=== PATIENT | female | born 1985 | race Asian ===

== ENCOUNTER 2017-09-29 12:38 | Emergency (ER) | payer OTHER ==
[2017-09-29 12:53] VITALS: BP 110/79
--- NOTE | 2017-09-29 13:46 | ED Physician Documentation ---
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 She says she did get blood drop from her thumb. She does not know full history of the source pateint. Did report it to horticulture supervisor at [facility]. Referred to ER. Occurred just FLORAL ASSOCIATE.) Where injury occurred: Work Timing - onset: Today Timing - details: Abrupt onset Worsened by: No: Palpating Associated symptoms: No: Weakness, Numbness Similar symptoms before: Has not had sx before Recently seen: Not recently seen Review of Systems Constitutional: reports: Other (has had Hep B vaccines int he past.). denies: Fever Nose: denies: Rhinorrhea / runny nose, Congestion Throat: denies: Sore throat Respiratory: denies: Cough : denies: Dysuria, Discharge Skin: denies: Rash, Lesions PD PAST MEDICAL HISTORY - Past Medical History Past Medical History: No Cardiovascular: None Respiratory: None Endocrine/Autoimmune: None GI: None FITNESS ASSISTANT: None : None HEENT: None Psych: None Musculoskeletal: None Derm: None - Past Surgical History Past Surgical History: Yes /FITNESS ASSISTANT: section - Present Medications Home Medications: Ambulatory Orders Medication Instructions Recorded Confirmed lamiVUDine/ZIDOVUDINE [Combivir] 1 each PO BID #10 tablet 09/29/17 - Allergies Allergies/Adverse Reactions: Allergies Allergy/AdvReac Type Severity Reaction Status Date / Time No Known Drug Allergies Allergy Verified 09/29/17 12:53 - Social History Does the pt smoke?: No Smoking Status: Never smoker Does the pt drink ETOH?: No Does the pt have substance abuse?: No - Immunizations Immunizations are current?: Yes - POLST Patient has POLST: No PD ED PE NORMAL - Vitals Vital signs reviewed: Yes - General General: Alert and oriented X 3, No acute distress, Well developed/nourished - Derm Derm: Normal color, Warm and dry - Extremities Extremities: Other (left thumb tip with smll puncture wound. No FB nor bleeding. ) - Neuro Neuro: No motor deficit, No sensory deficit Results - Vitals Vitals: Vital Signs - 24 hr 09/29/17 12:45 Temperature 36.2 C L Heart Rate 86 Respiratory 15 Rate Blood Pressure 110/79 O2 Saturation 98 Oxygen O2 Source Room air - Labs Labs: Laboratory Tests 09/29/17 14:15 Serum HCG, Qual NEGATIVE PD MEDICAL DECISION MAKING - ED course Complexity details: reviewed results (body fluid exposure tests drawn. The expsoure order set only had HIV and preg test, so I added Hep panel), considered differential ([facility] would have protocol for body fluid exposure. Still Operator Brandy would be checking for blood testing of source patient, so should be able to assess HIV/HCV risk in the next couple days. Very low risk exposure, and patient wants to have HIV prophylaxis pending the source patient test results. ), d/w patient - Sepsis Event Vital Signs: Vital Signs - 24 hr 09/29/17 12:45 Temperature 36.2 C L Heart Rate 86 Respiratory 15 Rate Blood Pressure 110/79 O2 Saturation 98 Oxygen O2 Source Room air Departure - Departure Disposition: 01 Home, Self Care Clinical Impression: Needlestick injury accident with exposure to body fluid Condition: Stable Record reviewed to determine appropriate education?: Yes Instructions: ED Body Fluid Exp HC Worker Prescriptions: lamiVUDine/ZIDOVUDINE [Combivir] 1 each PO BID #10 tablet Comments: Follow-up with the horticulture supervisor/administration at [employer]. They should be following a protocol to test the source patient for blood borne diseases. Presumably this will result in the next few days. Take Combivir antiviral for HIV prophylaxis until you find out the results of the testing on the source patient. Otherwise watch for signs of infection at the injury site. Tylenol if needed for pains. Discharge Date/Time: 09/29/17 14:47
[2017-09-29] MEDS ORDERED: ONDANSETRON ODT 4 MG TABLET TL STA (13:57)
[2017-09-29] MEDS ORDERED: lamiVUDine/ZIDOVUDINE 150 MG/300 MG TABLET PO STA (13:57)
[2017-09-29 14:42] LABS: HCG,QUALITATIVE BLOOD NEGATIVE
[2017-09-30 12:48] LABS: HEPATITIS A IGM NON-REACTIVE (NON-REACTIVE); HEPATITIS B CORE ANTIBODY IGM NON-REACTIVE (NON-REACTIVE); HEPATITIS B SURFACE ANTIGEN NON-REACTIVE (NON-REACTIVE); HEPATITIS C ANTIBODY NON-REACTIVE (NON-REACTIVE)
[2017-09-30 16:47] LABS: HIV AG/AB 4TH GEN NON-REACTIVE (NON-REACTIVE)
== END 2017-09-29 14:47 | disposition home or self-care (01) ==
LOC: ED 12:38
DX: S61.032A Puncture wound without foreign body of left thumb without damage to nail, initial encounter (principal); W46.1XXA Contact with contaminated hypodermic needle, initial encounter; Y99.0 Civilian activity done for income or pay; Z77.21 Contact with and (suspected) exposure to potentially hazardous body fluids
CPT/HCPCS: 36415; 80074; 84703; 87389; 99283; A9270; Q0162; 1040M

== ENCOUNTER 2018-04-23 05:52 | Day surgery (SDC) | payer OTHER ==
[2018-04-23] MEDS ORDERED: ceFAZolin 2 GM/50 ML 2 GM/50 ML BAG IV ONE (06:27)
[2018-04-23 06:49] LABS: HCG UR QUAL NEGATIVE
[2018-04-23] MEDS ORDERED: LACTATED RINGERS 1,000 ML IV ONE ×2 (07:04→09:22)
--- NOTE | 2018-04-23 07:10 | ANESTHESIA ---
Pre-Anesthesia VS, & Labs - Diagnosis Right foot hallux valgus - Procedure right foot bunionectomy Vital Signs: Temp Pulse Resp BP Pulse Ox 36.2 C L 57 L 16 108/75 100 04/23/18 06:41 04/23/18 06:41 04/23/18 06:41 04/23/18 06:41 04/23/18 06:41 Height 5 ft 1 in Weight (kg) 62.5 kg Body Mass Index 25.4 - NPO >8 hours Last Fluid Intake: water at 540 - Is Patient ?: No Home Medications and Allergies Home Medications: Ambulatory Orders Ascorbic Acid [Vitamin C] 500 mg PO 04/14/18 Pnv No.122/Iron/Folic Acid [ Multi Tablet] 1 each PO 04/14/18 Ascorbic Acid [Vitamin C] 500 mg PO 04/14/18 Pnv No.122/Iron/Folic Acid [ Multi Tablet] 1 each PO 04/14/18 Allergies/Adverse Reactions: Allergies Allergy/AdvReac Type Severity Reaction Status Date / Time No Known Drug Allergies Allergy Verified 04/14/18 09:34 Anes History & Medical History - Anesthetic History Family history of Anesthesia Complications: Denies Family history of Malignant Hyperthermia: Denies - Medical History Cardiovascular: reports: None Pulmonary: reports: None Gastrointestinal: reports: None Urinary: reports: None Neuro: reports: None Musculoskeletal: reports: Other Endocrine/Autoimmune: reports: None Blood Disorders: reports: None Skin: reports: None Smoking Status: Never smoker Psychosocial: reports: No issues indicated - Surgical History Gynecologic: section Exam General: Alert, Oriented x3, Cooperative, No acute distress Dental: WNL Mouth Openin Fingerbreadth Neck Mobility: Normal Mallampati classification: II Thyromental Distance: 4-6 cm Respiratory: Lungs clear, Normal breath sounds, No respiratory distress, No accessory muscle use Cardiovascular: Regular rate, Normal S1, Normal S2, No murmurs Mental/Cognitive Status: Alert/Oriented X3, Normal for patient Plan Anesthesia Type: General Consent for Procedure(s) Verified and Reviewed: Yes Code Status: Attempt Resuscitation ASA classification: 1-Healthy patient Is this case an emergency?: No
[2018-04-23] MEDS ORDERED: BUPIVACAINE 0.25% PF 10 ML VIAL ONE (07:12)
[2018-04-23] MEDS ORDERED: fentaNYL 100 MCG/2 ML VIAL IVP ONE (08:12)
[2018-04-23] MEDS ORDERED: PROPOFOL 200 MG/20 ML VIAL IVP ONE (08:12)
[2018-04-23] MEDS ORDERED: DEXAMETHASONE 4 MG/ML VIAL IVP ONE (08:12)
[2018-04-23] MEDS ORDERED: KETOROLAC 30 MG/ML VIAL IVP ONE (08:12)
[2018-04-23] MEDS ORDERED: HYDROmorphone 1 MG/ML CARPUJECT IVP ONE (08:12)
[2018-04-23] MEDS ORDERED: BUPIVACAINE 0.25% PF 30 ML VIAL SUBQ ONE ×3 (08:12→09:37)
[2018-04-23] MEDS ORDERED: MIDAZOLAM 2 MG/2 ML VIAL IVP ONE (08:12)
[2018-04-23] MEDS ORDERED: ONDANSETRON 4 MG/2 ML VIAL IVP ONE (08:12)
[2018-04-23] MEDS ORDERED: oxyCODONE 5 MG TABLET PO PRN (09:56)
[2018-04-23] MEDS ORDERED: ONDANSETRON 4 MG/2 ML VIAL IVP PRN (09:56)
--- NOTE | 2018-04-23 09:59 | OPERATIVE REPORT ---
Operative Report - General Procedure Date: 04/23/18 Planned Procedure: Right 1st Metatarsal Scarf Osteotomy, Modified Cheung Pre-Op Diagnosis: Right Hallux Valgus Procedure Performed: Right 1st Metatarsal Scarf Osteotomy, Modified Cheung Post Op Diagnosis: Same - Procedure Note Primary Surgeon: Berry Larson Estimated Blood Loss (mL): 5 Complications: None - Other Other Information/Narrative: Bunion Postoperative Plan: 0-2 weeks: No weight bearing leave dressing intact 2 week appt: Non weight bearing xrays, sutures out, bunion brace applied 2-4 weeks: No weight bearing, may remove bunion brace for showers, no soaking incision 4 week appt: Reassess, provide forefoot offloading hard soled shoe 4-8 weeks: WBAT in forefoot offloading shoe, continue to use bunion brace 8 week magan: Weight bearing xrays, may transition to normal shoe Indication For Surgery: 32-year-old female with bilateral hallux valgus right being worse than left. She has pain that limits her activities and did not respond to modification of shoewear and activities. The risks, benefits, and alternatives were discussed. Risks include pain, bleeding, infection, damage to nearby structures, numbness, recurrence of bunion, hallux varus, lack of symptom relief, implant complications, nonunion, need for further surgery, DVT, PE, stroke, and . Written consent was obtained. Procedure in Detail: The patient was met in the pre-operative hold area on the day of the procedure. The operative extremity was signed and questions were answered. The patient was brought to the operating room and a general anesthetic was administered. Supine position was used and bony prominences were padded. Standard prepping and draping was performed. A time out confirmed patient identification, laterality, procedure, allergies, antibiotics, and images. An Esmarch was used to exsanguinate the limb and the tourniquet was elevated to 250 mmHg. Total tourniquet time was 93 minutes. A 2 cm incision was made between the first and second metatarsal heads and blunt dissection was carried down. The neurovascular bundle was protected with a dull retractor. I identified the adductor tendon and the intermetacarpal ligament and sharply resected them from their attachments on the first ray. I took care to leave the flexor hallucis brevis attached to the lateral sesamoid. I incised the capsule between the sesamoid and the metacarpal head. I then pie crusted the lateral capsule between the metacarpal head and the proximal phalanx. A varus force was then applied to the toe and the toe freely moved in the varus. This wound was then packed with gauze A direct medial incision was made over the first metatarsal from the metatarsal phalangeal joint to just short of the tarsometatarsal joint. Blunt dissection was used to identify the dorsal cutaneous nerve and this was protected throughout the case. Full-thickness skin flaps were created. A full-thickness longitudinal capsular incision was made in the first MTP joint and the capsule was dissected off of the metatarsal head ensuring to preserve the plantar capsular attachments with the accompanying blood supply. A periosteal elevator was used to free the periosteum along the medial shaft. A silver osteotomy was then performed just off the cartilage surface ensuring to leave a medial shoulder. The distal dorsal transverse osteotomy was then made perpendicular to the first metatarsal shaft starting centrally and the metatarsal head. The total sawblade was left in place and the plantar proximal transverse osteotomy was made parallel to this ensuring to be within metaphyseal bone. The longitudinal osteotomy was then made parallel to the walking surface of the foot. A second proximal transverse osteotomy was made and a 4 mm chunk of bone was removed. A freer elevator was used to release the periosteum on the lateral surface to allow for the shift. I then shifted the plantar fragment laterally and pulled the dorsal fragment medially. This was then clamped in place and imaging confirmed excellent position. The plantar capsule was pulled on and the sesamoids reduced nicely. Satisfied with this position, countersunk 2.0 millimeter screws were placed proximally and distally confirming excellent purchase. The clamp was then removed and the fixation was stable. The medial shelf of bone was then excised with a sagittal saw. The wound was irrigated copiously. The medial shelf fragment was very small and was left out of the wound. Images were again taken. I then reassessed the toe and found that there was good spread between the first and second toe and determined that an Esvin osteotomy was not necessary. I then excised the excess medial capsule and performed a vest over pants plication and derotational capsular closure using 2-0 fiberwire, burying the knots between layers. This was backed up with multiple 0 Vicryl sutures. The periosteal layer was then closed with 0 Vicryl. The skin was closed with 2-0 Vicryl in the subdermis and 3-0 nylon in the skin. 10 cc of quarter percent Marcaine without epinephrine was placed deep to the incision. A sterile bunion dressing was applied. The patient was awakened and transferred to the recovery room.
[2018-04-23] MEDS ORDERED: oxyCODONE 5 MG TABLET ONE (11:06)
[2018-04-23] MEDS ORDERED: ONDANSETRON ODT 4 MG TABLET ONE (11:06)
[2018-04-23 11:19] VITALS: BP 103/65
== END 2018-04-23 05:53 | disposition home or self-care (01) ==
LOC: SDS 05:52
PROVIDERS: ATTEND Orthopaedic Surgery
PROC: 0QSN04Z Reposition Right Metatarsal with Internal Fixation Device, Open Approach (ICD-10-PCS; principal; 2018-04-23 07:30)
DX: M20.11 Hallux valgus (acquired), right foot (principal); M21.611 Bunion of right foot
CPT/HCPCS: 28296; 81025; A9270; C1713; J0690; J1170; J7120; Q0162

== ENCOUNTER 2018-07-02 20:21 | Emergency (ER) | payer OTHER ==
--- NOTE | 2018-07-02 21:15 | ED Physician Documentation ---
PD HPI FEMALE - Stated complaint Stated Complaint: ABD PX/4 WKS - Chief complaint Chief Complaint: Abd Pain - History obtained from History obtained from: Patient, Family - History of Present Illness Timing - onset: How many days ago (4) Timing - duration: Days (4) Timing - details: Gradual onset, Still present Associated symptoms: Pelvic pain. No: Vaginal bleeding, Vaginal discharge, Dysuria, Urinary frequency Contributing factors: OB-HANDER IN History: G (2), P (1) Similar symptoms before: Has not had sx before Recently seen: Clinic - Additional information Additional information: 33-year-old female 2 para 1 had a last normal menstrual period 05/31/2018 and she has had a positive test on 05/27/2018. She is working with hazardous materials at work and was concerned that she might be and took a test. She has had a confirmation done at the [facility]. She is experiencing some lower pelvic cramping with radiation to her back on both sides. She denies any bleeding or spotting. Review of Systems Constitutional: denies: Fever, Chills, Myalgias Eyes: denies: Decreased vision Ears: denies: Ear pain Nose: denies: Rhinorrhea / runny nose, Congestion Throat: denies: Sore throat Cardiac: denies: Chest pain / pressure, Palpitations Respiratory: denies: Dyspnea, Cough GI: reports: Abdominal Pain, Nausea. denies: Vomiting, Constipation, Diarrhea : denies: Dysuria, Frequency Skin: denies: Rash Musculoskeletal: denies: Neck pain, Back pain, Extremity pain Neurologic: denies: Generalized weakness, Focal weakness, Numbness PD PAST MEDICAL HISTORY - Past Medical History Past Medical History: No Cardiovascular: None Respiratory: None Neuro: None Endocrine/Autoimmune: None GI: None HANDER IN: None : None HEENT: None Psych: None Musculoskeletal: Other Derm: None - Past Surgical History Past Surgical History: Yes /HANDER IN: section - Present Medications Home Medications: Ambulatory Orders Medication Instructions Recorded Confirmed Ascorbic Acid [Vitamin C] 500 mg PO 04/14/18 Pnv No.122/Iron/Folic Acid 1 each PO 04/14/18 [ Multi Tablet] - Allergies Allergies/Adverse Reactions: Allergies Allergy/AdvReac Type Severity Reaction Status Date / Time No Known Drug Allergies Allergy Verified 07/02/18 20:29 - Social History Does the pt smoke?: No Smoking Status: Never smoker Does the pt drink ETOH?: No Does the pt have substance abuse?: No - Immunizations Immunizations are current?: Yes - POLST Patient has POLST: No PD ED PE NORMAL - Vitals Vital signs reviewed: Yes (normal) - General General: Alert and oriented X 3, No acute distress, Well developed/nourished - HEENT HEENT: Atraumatic, PERRL, EOMI - Neck Neck: Supple, no meningeal sign - Cardiac Cardiac: RRR, No murmur - Respiratory Respiratory: No respiratory distress, Clear bilaterally - Abdomen Abdomen: Soft, Other (mild suprapubic tenderness bilaterally ) - Back Back: No CVA TTP, No spinal TTP - Derm Derm: Normal color, Warm and dry, No rash - Extremities Extremities: No deformity, Normal ROM s pain, No edema - Neuro Neuro: Alert and oriented X 3, barrel brander 2-12 intact, No motor deficit, No sensory deficit, Normal speech Eye Opening: Spontaneous Motor: Obeys Commands Verbal: Oriented GCS Score: 15 - Psych Psych: Normal mood, Normal affect Results - Vitals Vitals: Vital Signs - 24 hr 07/02/18 20:24 Temperature 36.2 C L Heart Rate 77 Respiratory 18 Rate Blood Pressure 107/70 O2 Saturation 100 Oxygen O2 Source Room air - Labs Labs: Laboratory Tests 07/02/18 07/02/18 21:18 21:39 HCG, Quant 396.89 Urine Color YELLOW Urine Clarity CLEAR Urine pH 6.5 Ur Specific Aurora <=1.005 Urine Protein NEGATIVE Urine Glucose (UA) NEGATIVE Urine Ketones NEGATIVE Urine Occult Blood NEGATIVE Urine Nitrite NEGATIVE Urine Bilirubin NEGATIVE Urine Urobilinogen 0.2 (NORMAL) Ur Leukocyte Esterase NEGATIVE Ur Microscopic Review NOT INDICATED Urine Culture Comments NOT INDICATED Procedures - Bedside sono Bedside sono by EMP: With use of bedside ultrasound the pelvis is imaged and the uterus is well without obvious evidence of gestational sac. PD MEDICAL DECISION MAKING - ED course Complexity details: reviewed old records, reviewed results, re-evaluated patient, considered differential, d/w patient, d/w family ED course: 33-year-old female with early has a very low quantitative hCG and nothing visible on bedside ultrasound. She has some cramping-like pain she will need repeat hCG in 2 days. Departure - Departure Disposition: 01 Home, Self Care Clinical Impression: Early stage of Condition: Stable Instructions: ED Abdominal Pain Rule Out Ectopic Follow-Up: SIDDHARTH Galloway [Provider Group] Comments: Today your quantitative hCG was 396. This number should go up dramatically in the next 2 days and a repeat level is indicated. Follow-up with your primary care doctor.
[2018-07-02 21:27] LABS: BILIRUBIN,URINE NEGATIVE (NEGATIVE); CLARITY,URINE CLEAR (CLEAR); GLUCOSE, URINE (UA) NEGATIVE (NEGATIVE); KETONES,URINE (UA) NEGATIVE (NEGATIVE); LEUKOCYTE ESTERASE, URINE NEGATIVE (NEGATIVE); NITRITE,URINE NEGATIVE (NEGATIVE); OCCULT BLOOD,URINE NEGATIVE (NEGATIVE); PH,URINE 6.5 PH (5.0-7.5); PROTEIN,URINE NEGATIVE (NEGATIVE); UROBILINOGEN,URINE 0.2 (NORMAL) E.U./dL (NORMAL)
[2018-07-02 22:48] VITALS: BP 106/85
== END 2018-07-02 22:53 | disposition home or self-care (01) ==
LOC: ED 20:21
DX: O99.89 Other specified diseases and conditions complicating pregnancy, childbirth and the puerperium (principal); R10.2 Pelvic and perineal pain; M54.9 Dorsalgia, unspecified; Z3A.01 Less than 8 weeks gestation of pregnancy; Z77.29 Contact with and (suspected) exposure to other hazardous substances
CPT/HCPCS: 36415; 81001; 81003; 84702; 87086; 99282; 99283

== ENCOUNTER 2019-02-22 10:25 | Outpatient (CLI) | payer OTHER ==
[2019-02-22 10:44] VITALS: BP 106/68
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
== END 2019-02-22 13:00 | disposition home or self-care (01) ==
LOC: WFO 10:25 → FBP 10:28 → WFO 13:00
PROVIDERS: ATTEND Obstetrics & Gynecology
DX: Z04.1 Encounter for examination and observation following transport accident (principal); Z3A.38 38 weeks gestation of pregnancy
CPT/HCPCS: 99213

== ENCOUNTER 2019-02-28 13:13 | Outpatient (CLI) | payer OTHER ==
[2019-02-28 13:55] LABS: BASOPHILS % (AUTO) 0.3 %; EOSINOPHILS # (AUTO) 0.1 10^3/uL (0.0-0.7); EOSINOPHILS % (AUTO) 1.1 %; HGB - HEMOGLOBIN 11.1 g/dL (12.0-16.0); LYMPHOCYTES # (AUTO) 1.4 10^3/uL (1.5-3.5); LYMPHOCYTES % (AUTO) 21.5 %; MEAN CORPUSCULAR HEMOGLOBIN 32.5 pg (27.0-31.0); MEAN CORPUSCULAR HGB CONC 33.3 g/dL (32.0-36.0); MEAN CORPUSCULAR VOLUME 97.4 fL (81.0-99.0); MEAN PLATELET VOLUME 10.3 fL (7.9-10.8); MONOCYTES # (AUTO) 0.6 10^3/uL (0.0-1.0); MONOCYTES % (AUTO) 9.1 %; NEUTROPHILS # (AUTO) 4.5 10^3/uL (1.5-6.6); NEUTROPHILS % (AUTO) 67.1 %; PLT - PLATELET COUNT 155 10^3/uL (130-450); RED BLOOD COUNT 3.42 10^6/uL (4.20-5.40); RED CELL DISTRIBUTION WIDTH 12.8 % (12.0-15.0); WHITE BLOOD COUNT 6.6 x10^3/uL (4.8-10.8)
== END 2019-02-28 13:14 | disposition home or self-care (01) ==
LOC: LAB 13:13
PROVIDERS: ATTEND Obstetrics & Gynecology
DX: Z01.812 Encounter for preprocedural laboratory examination (principal); O34.211 Maternal care for low transverse scar from previous cesarean delivery; Z3A.00 Weeks of gestation of pregnancy not specified
CPT/HCPCS: 36415; 85025; 86850; 86900; 86901

== ENCOUNTER 2019-02-28 13:53 | Outpatient (CLI) | payer OTHER | END 2019-02-28 13:54 | disposition home or self-care (01) | LOC: WFO 13:53 | PROVIDERS: ATTEND Obstetrics & Gynecology | DX: O34.211 Maternal care for low transverse scar from previous cesarean delivery (principal); Z01.812 Encounter for preprocedural laboratory examination | CPT/HCPCS: 36415; 85025; 86850; 86900; 86901 ==

== ENCOUNTER 2019-03-01 06:02 | Inpatient (IN) | payer OTHER ==
[2019-03-01] MEDS ORDERED: LACTATED RINGERS 1,000 ML IV SCH ×2 (06:30→11:00)
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
[2019-03-01] MEDS ORDERED: CITRIC ACID/SODIUM CITRATE 15 ML UDC PO ONE (07:35)
[2019-03-01] MEDS ORDERED: ceFAZolin 2 GM in SODIUM CHLORIDE 0.9% 100ML 100 ML IV ONE (08:00)
[2019-03-01] MEDS ORDERED: LACTATED RINGERS 1,000 ML IV ONE ×2 (08:38→09:46)
[2019-03-01] MEDS ORDERED: METHYLERGONOVINE 0.2 MG/ML AMP ONE (09:14)
--- NOTE | 2019-03-01 09:18 | ANESTHESIA ---
Pre-Anesthesia VS, & Labs - Diagnosis Previous C section - Procedure Repeat C section Vital Signs: Temp Pulse Resp BP Pulse Ox 36.9 C 74 16 92/59 L 98 03/01/19 07:43 03/01/19 07:43 03/01/19 07:43 03/01/19 07:43 03/01/19 07:43 Height 5 ft 2 in Weight (kg) 73.028 kg Body Mass Index 23.9 - NPO >8 hours - Is Patient ?: Yes - Lab Results Lab results reviewed: Yes Home Medications and Allergies Active Medications Lactated Ringer's (Lr) 1,000 mls @ 0 mls/hr IV .Q0M JOYA Ascorbic Acid [Vitamin C] 500 mg PO 04/14/18 No122/Iron/Folic Acid [ Multi Tablet] 1 each PO 04/14/18 Allergies/Adverse Reactions: Allergies Allergy/AdvReac Type Severity Reaction Status Date / Time No Known Drug Allergies Allergy Verified 07/02/18 20:29 Anes History & Medical History - Anesthetic History Anesthesia Complications: reports: No previous complications Family history of Anesthesia Complications: Denies Family history of Malignant Hyperthermia: Denies - Medical History Cardiovascular: reports: None Pulmonary: reports: None Gastrointestinal: reports: None Urinary: reports: None Neuro: reports: None Musculoskeletal: reports: None, Other Endocrine/Autoimmune: reports: None Blood Disorders: reports: None Skin: reports: None Smoking Status: Never smoker Psychosocial: reports: No issues indicated - Surgical History Gynecologic: section - Obstetrical History : 2 Parity: 1 Events: positive: Previous Complications: positive: None Exam General: Alert, Oriented x3, Cooperative Dental: WNL Mouth Opening: Greater than 4 Fingerbreadths Neck Mobility: Normal Mallampati classification: I Thyromental Distance: greater than 6 cm Plan Anesthesia Type: Spinal Consent for Procedure(s) Verified and Reviewed: Yes Code Status: Attempt Resuscitation ASA classification: 2-Mild systemic disease Is this case an emergency?: No
[2019-03-01] MEDS: KETOROLAC 30 MG/ML VIAL IVP SCH ×3 (09:30→22:06)
[2019-03-01] MEDS ORDERED: OXYTOCIN 10 UNIT/ML VIAL IV ONE (09:48)
[2019-03-01] MEDS ORDERED: KETOROLAC 30 MG/ML VIAL IVP ONE (09:48)
[2019-03-01] MEDS ORDERED: METHYLERGONOVINE 0.2 MG/ML AMP IVP ONE (09:48)
[2019-03-01] MEDS ORDERED: ONDANSETRON 4 MG/2 ML VIAL IVP ONE (09:48)
[2019-03-01] MEDS ORDERED: ePHEDrine 50 MG/ML VIAL IVP ONE (09:48)
[2019-03-01] MEDS ORDERED: MORPHINE PF 5 MG/10 ML AMP EP ONE (09:48)
[2019-03-01] MEDS ORDERED: ONDANSETRON 4 MG/2 ML VIAL IVP PRN (10:03)
[2019-03-01] MEDS ORDERED: SODIUM CHLORIDE FLUSH 0.9% 10 ML SYRINGE IVP PRN (10:03)
--- NOTE | 2019-03-01 10:10 | OPERATIVE REPORT ---
Operative Report - General Admit Date: 03/01/19 Procedure Date: 03/01/19 Planned Procedure: repeat low transverse delivery Pre-Op Diagnosis: uterus at 39+1 wga, prior uterine scar Procedure Performed: repeat low transverse delivery Post Op Diagnosis: same as above, delivered - Procedure Note Primary Surgeon: Yadira Ponce Secondary Surgeon: Eliana Burch Anesthesia Technique: Spinal Pathology: none IV Fluids (mL): 1,000 Estimated Blood Loss (mL): 800 Urine Output (mL): 50 Indications: prior uterine scar Findings: Midline vertical skin incision through old scar. viable male infant, apgars of 8 and 9. Double layer uterine closure. Normal bilateral ovaries, simple right paratubal cyst noted. Complications: Mild uterine atony, required 40u pitocin and methergine 200 mcg IM x 1 - Other Other Information/Narrative: After informed consent was assured, pt was taken to the OR with IV fluids running. Spinal anesthesia was obtained. Doptones immediately following spinal were noted to be in the 130s. A hayes catheter was inserted. The patient was prepped and draped in a sterile fashion. A surgical timeout was performed. A vertical skin incision was made through the patient's existing scar and carried sharply down to the rectus fascia, which was incised; the fascial incision was extended with cautery. The rectus muscles were in the midline and the peritoneum was identified and entered sharply. The peritoneal incision was bluntly extended, exposing the lower uterine segment. A bladder flap was created with blunt and sharp dissection. No significant adhesions were noted. A low transverse incision was made on the uterus and extended cephalad-caudad. The amniotic sac was ruptured with return of clear fluid. The 's head was flexed and brought to the incision and delivered, followed by the rest of the body. Good tone and spontaneous cry on the field. After 30 seconds delayed cord clamping, the cord was clamped x 2 and cut, and the infant was passed off the sterile field. Cord blood was collected, and the placenta was delivered intact. The uterus was exteriorized and the cavity swept clean of membranes. The hysterotomy was closed with a running locked suture of 0 chromic. During repair, poor tone was noted, so the patient was given an additional 20 units of IV pitocin as well as 200 mcg methergine IM with an improvement in tone. An embricating suture of 0 chromic was then placed in a horizontal fashion. Good hemostasis appreciated. Inspection revealed normal bilateral ovaries and fallopian tubes with a small simple paratubal cyst on the right. The uterus was returned to the abdomen. The rectus muscles, rectus sheath fascia and peritoneum were incorporated in a mass closure at the apex of the vertical incision in a running fashion with 0 PDS; below the arcuate line just the anterior rectus sheath was reapproximated. The subcutaneous space was reapproximated with a series of interrupted sutures of 2-0 vicryl, followed by several deep dermal sutures to reduce tension on the closure. The skin was closed with a running subcuticular suture of 4-0 monocryl. Steristrips were placed over the incision, followed by a pressure dressing. A final exam revealed good uterine tone and expressed small clot with no active bleeding. Sponge and instrument counts were correct. No complications were appreciated.
--- NOTE | 2019-03-01 10:24 | DELIVERY NOTE ---
Delivery Note - Labor Labor: positive: Other (no labor, scheduled ) - Infant Delivery Method Infant Delivery Method: positive: Repeat - Presentation Presentation: positive: Vertex, DOUG - left occiput anterior - Nuchal Cord Nuchal Cord: positive: None - Anesthetic Anesthetic Type: - Amniotic Fluid Description Amniotic Fluid Description: positive: Clear - Delivery Outcome Delivery Outcome: positive: Livebirth - [place] : positive: Placed in direct skin contact with mother, Stimulated sex: positive: Male - Placenta Placenta: positive: Intact, Expressed - Estimated Blood Loss Estimated Blood Loss (in cc): 800 - Post Delivery Events Post Delivery Events: positive: No post delivery events - Delivery Comments (Free Text/Narrative) Delivery Comments (Free Text/Narrative): Delivery of viable male in RLTCD at 39+1 wga, 8 and 9, no complications. Double layer uterine closure; vertical midline skin incision through old scar. See operative report for full details.
[2019-03-01] MEDS: ACETAMINOPHEN 500 MG TABLET PO SCH ×2 (11:24→20:56)
[2019-03-01] MEDS: oxyCODONE 5 MG TABLET PO PRN (11:25)
[2019-03-01] MEDS: SIMETHICONE CHEW 80 MG TABLET PO SCH ×2 (16:09→20:56)
[2019-03-01] MEDS: SODIUM CHLORIDE FLUSH 0.9% 10 ML SYRINGE IVP SCH (16:39)
[2019-03-01] MEDS: DOCUSATE SODIUM 100 MG CAPSULE PO SCH (20:56)
[2019-03-02] MEDS: KETOROLAC 30 MG/ML VIAL IVP SCH (03:57)
[2019-03-02] MEDS: SODIUM CHLORIDE FLUSH 0.9% 10 ML SYRINGE IVP SCH (03:57)
[2019-03-02] MEDS: ACETAMINOPHEN 500 MG TABLET PO SCH ×3 (05:46→23:02)
[2019-03-02 06:07] LABS: BASOPHILS % (AUTO) 0.4 %; EOSINOPHILS # (AUTO) 0.1 10^3/uL (0.0-0.7); EOSINOPHILS % (AUTO) 0.9 %; HGB - HEMOGLOBIN 9.2 g/dL (12.0-16.0); LYMPHOCYTES # (AUTO) 1.2 10^3/uL (1.5-3.5); MEAN CORPUSCULAR HGB CONC 33.7 g/dL (32.0-36.0); MEAN CORPUSCULAR VOLUME 97.8 fL (81.0-99.0); MEAN PLATELET VOLUME 10.7 fL (7.9-10.8); MONOCYTES # (AUTO) 0.9 10^3/uL (0.0-1.0); MONOCYTES % (AUTO) 8.3 %; NEUTROPHILS # (AUTO) 8.8 10^3/uL (1.5-6.6); NEUTROPHILS % (AUTO) 78.8 %; PLT - PLATELET COUNT 151 10^3/uL (130-450); RED BLOOD COUNT 2.79 10^6/uL (4.20-5.40); RED CELL DISTRIBUTION WIDTH 12.5 % (12.0-15.0); WHITE BLOOD COUNT 11.2 x10^3/uL (4.8-10.8)
--- NOTE | 2019-03-02 08:41 | PROVIDER PROGRESS NOTE ---
Subjective - Prog Note Date Prog Note Date: 03/02/19 Prog Note Time: 08:39 - Subjective Pt reports feeling: Improved Subjective: Pt doing well. Reports minimal pain, ambulating without difficulty. Ball just removed this AM, not yet voided. Tolerating regular diet, no n/v. without issue. Lochia is light. Mood is good. No other acute concerns. Objective - Vital Signs/Intake & Output Vital Signs: Vital Signs x48h Temp Pulse Resp BP Pulse Ox 03/02/19 04:10 98.1 F 76 16 98/46 L 100 03/02/19 01:48 97.5 F L 78 16 88/55 L 96 Intake & Output: Intake & Output 02/27/19 02/28/19 03/01/19 03/02/19 23:59 23:59 23:59 23:59 Intake Total 2305 Output Total 2350 1275 Balance -45 -1275 - Objective General Appearance: positive: No acute distress Abdomen: positive: Non-tender (soft, dressing in place with small spot of s trikethrough) Skin: positive: Color nml, No rash Extremities: positive: Non-tender Neurologic/Psychiatric: positive: Oriented x3 - Lab Results Fish Bones: 03/02/19 05:46 Other Labs: Lab Results x24hrs 03/02/19 Range/Units 05:46 WBC 11.2 H (4.8-10.8) x10^3/uL RBC 2.79 L (4.20-5.40) 10^6/uL Hgb 9.2 L (12.0-16.0) g/dL Hct 27.3 L (37.0-47.0) % MCV 97.8 (81.0-99.0) fL MCH 33.0 H (27.0-31.0) pg MCHC 33.7 (32.0-36.0) g/dL RDW 12.5 (12.0-15.0) % Plt Count 151 (130-450) 10^3/uL MPV 10.7 (7.9-10.8) fL Neut # (Auto) 8.8 H (1.5-6.6) 10^3/uL Lymph # (Auto) 1.2 L (1.5-3.5) 10^3/uL [place]ett # (Auto) 0.9 (0.0-1.0) 10^3/uL Eos # (Auto) 0.1 (0.0-0.7) 10^3/uL Baso # (Auto) 0.0 (0.0-0.1) 10^3/uL Absolute Nucleated RBC 0.00 x10^3/uL Nucleated RBC % 0.0 /100WBC Assessment/Plan - Problem List (1) state Impression: 33 yo POD#1 s/p RLTCD. Uncomplicated and delivery. Rh positive, Rubella Immune. VS wnl, UOP excellent, exam benign. Hct 33-->27. . Desires barrier for contraception. -Transition toradol to motrin -Await DTV -Iron/vitamin C for postoperative anemia; appropriate postoperative drop -Dispo: home tomorrow
[2019-03-02] MEDS: DOCUSATE SODIUM 100 MG CAPSULE PO SCH ×2 (09:15→23:02)
[2019-03-02] MEDS: SIMETHICONE CHEW 80 MG TABLET PO SCH ×4 (09:15→23:02)
[2019-03-02] MEDS: ASCORBIC ACID CHEW 500 MG TABLET PO SCH (09:22)
[2019-03-02] MEDS: FERROUS SULFATE 325 MG TABLET PO SCH (09:22)
[2019-03-02] MEDS ORDERED: ROPIVACAINE 0.2% 0 MG/0 ML BAG EP ONE (12:48)
[2019-03-02] MEDS: IBUPROFEN 800 MG TABLET PO SCH ×2 (13:59→23:02)
[2019-03-02] MEDS: oxyCODONE 5 MG TABLET PO PRN (18:12)
[2019-03-03] MEDS: FERROUS SULFATE 325 MG TABLET PO SCH (04:30)
[2019-03-03] MEDS: oxyCODONE 5 MG TABLET PO PRN (04:30)
[2019-03-03] MEDS: ASCORBIC ACID CHEW 500 MG TABLET PO SCH (04:30)
--- NOTE | 2019-03-03 07:34 | PROVIDER PROGRESS NOTE ---
Subjective - Prog Note Date Prog Note Date: 03/03/19 Prog Note Time: 07:32 - Subjective Pt reports feeling: Improved Subjective: Pt is doing well with no acute concerns. Pain well controlled with oral medications. Denies n/v, tolerating regular diet. Ambulating without difficulty. Lochia is light. Voiding normally. Passing flatus. but some issues with supply, supplementing but continuing to latch infant and pump in order to bring in milk. No mood concerns. Objective - Vital Signs/Intake & Output Vital Signs: Vital Signs x48h Temp Pulse Resp BP Pulse Ox 03/03/19 04:20 97.9 F 92 20 101/66 96 Intake & Output: Intake & Output 02/28/19 03/01/19 03/02/19 03/03/19 23:59 23:59 23:59 23:59 Intake Total 2305 Output Total 2350 1875 Balance -45 -1875 - Objective General Appearance: positive: No acute distress Abdomen: positive: Non-tender, Other (soft, mild gaseous distention. Midline vertical incision c/d/i, steristrips in place.) Skin: positive: Color nml, No rash Extremities: positive: Non-tender Neurologic/Psychiatric: positive: Oriented x3 - Lab Results Fish Bones: 03/02/19 05:46 Assessment/Plan - Problem List (1) state Impression: 33 yo POD#2 s/p RLTCD. Uncomplicated and delivery. Rh pos, Rub Imm. VS wnl, exam benign. and supplementing with formula. Plans condoms for contraception. -Dispo. Home today with close interval f/u.
--- NOTE | 2019-03-03 07:38 | DISCHARGE SUMMARY ---
"Discharge Summary Admit Date: 03/01/19 Discharge Date: 03/03/19 Discharging Provider: Yadira Ponce Code Status: Attempt Resuscitation Condition at Discharge: Good Discharge Disposition: 01 Home, Self Care - DIAGNOSES Admission Diagnoses: 1. uterus at 39+1 wga 2. prior uterine scar Discharge Diagnoses with Status of Each Condition: 1. same as above, delivered 2. postoperative anemia - HPI History of Present Illness: 33 yo admitted at 39+1 wga for planned RLTCD - CONSULTS | PROCEDURES Consultations: anesthesia Procedures: 1. external monitoring 2. spinal anesthesia 3. RLTCD - HOSPITAL COURSE Hospital Course: Pt underwent uncomplicated RLTCD. On POD#1 her hayes catheter was removed and she was able to void without difficulty. She remained afebrile and normotensive throughout her course. At the time of discharge she was ambulating, voiding, passing flatus, tolerating regular diet and pain was controlled with oral medications. She was discharged home in good condition with close interval follow up. - ALLERGIES Allergies/Adverse Reactions: Allergies Allergy/AdvReac Type Severity Reaction Status Date / Time No Known Drug Allergies Allergy Verified 07/02/18 20:29 - MEDICATIONS Home Medications: Ambulatory Orders Medication Instructions Recorded Confirmed Ascorbic Acid [Vitamin C] 500 mg PO 04/14/18 No122/Iron/Folic Acid 1 each PO 04/14/18 [ Multi Tablet] Home Medications Other | Comments: 1. Ibuprofen 800 mg take 1 tab by mouth every 8 hours 2. Tylenol 325 mg take 3 tabs by mouth every 6 hours 3. Roxicodone 5 mg take 1 tab by mouth every 4-6 hours as needed for pain not relieved by other medications 4. Surfak 240 mg take 1 cap by mouth twice daily - PHYSICAL EXAM AT DISCHARGE General Appearance: positive: No acute distress (see progress note for full exam) - LABS Result Diagrams: 03/02/19 05:46 - QUALITY (Female Hip Fx Only) Was patient sent home on osteoporosis medication?: No - FOLLOW UP Follow Up: Follow up as scheduled with Dr. Ponce at [facility] - TIME SPENT Time Spent in Discharge (Minutes): 30"
[2019-03-03] MEDS: IBUPROFEN 800 MG TABLET PO SCH (08:10)
[2019-03-03] MEDS: ACETAMINOPHEN 500 MG TABLET PO SCH (08:10)
[2019-03-03] MEDS: DOCUSATE SODIUM 100 MG CAPSULE PO SCH (08:11)
[2019-03-03 14:02] VITALS: BP 111/76
== END 2019-03-03 13:00 | disposition home or self-care (01) | DRG 788 ==
LOC: FBP 06:02
PROVIDERS: ADMIT Obstetrics & Gynecology; ATTEND Obstetrics & Gynecology
PROC: 10D00Z1 Extraction of Products of Conception, Low, Open Approach (ICD-10-PCS; principal; 2019-03-01 08:30)
DX: O34.212 Maternal care for vertical scar from previous cesarean delivery (principal); N85.8 Other specified noninflammatory disorders of uterus; Z3A.40 40 weeks gestation of pregnancy; Z37.0 Single live birth; O62.2 Other uterine inertia; N83.8 Other noninflammatory disorders of ovary, fallopian tube and broad ligament; O90.81 Anemia of the puerperium
CPT/HCPCS: 36415; 85025

== ENCOUNTER 2022-10-04 19:39 | Emergency (ER) | payer OTHER ==
[2022-10-04 19:58] VITALS: BP 122/84
--- NOTE | 2022-10-04 20:07 | ED Physician Documentation ---
PD HPI WOUND RECHECK - Stated complaint Stated Complaint: NEEDLESTICK INJ - Chief complaint Chief Complaint: Needlestick - Histroy obtained from History obtained from: Patient - History of Present Illness Timing - onset: Other (just prior to arrival) - Additional information Additional information: 37-year-old female presents for evaluation of possible needlestick injury. 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 Denies bleeding. Resident does not have any history of blood-borne illnesses such as HIV or hepatitis. Review of Systems Eyes: denies: Loss of vision, Decreased vision, Photophobia, Discharge, Irritation, Reviewed and negative, Other Ears: denies: Loss of hearing, Ear pain, Drainage/discharge, Tinnitus/ringing, Foreign body, Reviewed and negative, Other Nose: denies: Rhinorrhea / runny nose, Congestion, Epistaxis, Sinus pressure / pain, Foreign Body, Reviewed and negative, Other Throat: denies: Dental pain / toothache, Oral lesions / sores, Sore throat, Swollen tonsils, Swallowed foreign body, Reviewed and negative, Other Cardiac: denies: Chest pain / pressure, Palpitations, Pedal edema, Calf pain, Reviewed and negative, Other Respiratory: denies: Dyspnea, Cough, Hemoptysis, Wheezing, Reviewed and negative, Other GI: denies: Abdominal Pain, Abdominal Swelling, Nausea, Vomiting, Constipation, Diarrhea, Hematemesis, Bloody / black stool, Reviewed and negative, Other : denies: Dysuria, Frequency, Hesitancy, Unable to Void, Incontinent, Hematuria, Discharge, LMP, Vaginal bleeding, Irregular menses, Missed period, Now EGA, Control, Hysterectomy, Testicular pain, Testicular mass, Ball Problem, Reviewed and negative, Other Skin: denies: Rash, Lesions, Abrasion (s), Laceration (s), Bite / sting, Reviewed and negative, Other Musculoskeletal: denies: Neck pain, Back pain, Extremity pain, Joint pain, Extremity swelling, Joint swelling, Pain with weight bearing, Reviewed and negative, Other PD PAST MEDICAL HISTORY - Past Medical History Cardiovascular: None Respiratory: None Neuro: None Endocrine/Autoimmune: None GI: None PLASTIC EXTRUSION OPERATOR: None : None HEENT: None Psych: None Musculoskeletal: None, Other Derm: None - Past Surgical History Past Surgical History: Yes /PLASTIC EXTRUSION OPERATOR: section - Present Medications Home Medications: Ambulatory Orders Medication Instructions Recorded Confirmed Ascorbic Acid [Vitamin C] 500 mg PO 04/14/18 No122/Iron/Folic Acid 1 each PO 04/14/18 [ Multi Tablet] - Allergies Allergies/Adverse Reactions: Allergies Allergy/AdvReac Type Severity Reaction Status Date / Time No Known Drug Allergies Allergy Verified 10/04/22 19:50 - Social History Does the pt smoke?: No Smoking Status: Never smoker Does the pt drink ETOH?: No Does the pt have substance abuse?: No - Immunizations Immunizations are current?: Yes - POLST Patient has POLST: No PD ED PE NORMAL - General General: Alert and oriented X 3, No acute distress, Well developed/nourished - HEENT HEENT: Atraumatic - Cardiac Cardiac: RRR - Respiratory Respiratory: No respiratory distress - Abdomen Abdomen: Soft, Non distended - Derm Derm: Normal color, Warm and dry, No rash - Neuro Neuro: Alert and oriented X 3, wharf hand 2-12 intact, Normal speech - Psych Psych: Normal mood, Normal affect Results - Vitals Vitals: Vital Signs - 24 hr 10/04/22 19:47 Temperature 36.5 C Heart Rate 80 Respiratory 16 Rate Blood Pressure 122/84 H O2 Saturation 98 Oxygen O2 Source Room air PD Medical Decision Making - ED course ED course: Well-appearing patient with possible accidental needlestick injury. Incident occurred with very small gauge needle, did not provoke blood. Patient showed me the area where the needle stick occurred, there is not appear to be any broken skin, there is no signs or symptoms of bleeding or injury. In addition since the patient is a prison resident their health history is available and there is no history of blood-borne illnesses on file. This is classified extremely low risk exposure. No indication for any further testing or treatment at this time. Patient counseled to follow-up with primary care physician. Departure - Departure Disposition: Home, Self Care Clinical Impression: Accidental hypodermic needlestick injury Condition: Good Instructions: Wound Care Forms: PCP List Discharge Date/Time: 10/04/22 20:15
== END 2022-10-04 20:15 | disposition home or self-care (01) ==
LOC: ED 19:39
DX: T14.8XXA Other injury of unspecified body region, initial encounter (principal); W46.0XXA Contact with hypodermic needle, initial encounter; Y92.129 Unspecified place in nursing home as the place of occurrence of the external cause; Y99.0 Civilian activity done for income or pay
CPT/HCPCS: 1040M; 99281; 99282

== ENCOUNTER 2023-03-04 16:02 | Emergency (ER) | payer OTHER ==
[2023-03-04 19:47] VITALS: BP 101/76; O2SAT 100
--- NOTE | 2023-03-04 21:53 | ED Physician Documentation ---
PD HPI DYSPNEA - Stated complaint Stated Complaint: SOA - Chief complaint Chief Complaint: Resp - History obtained from History obtained from: Patient - Additional information Additional information: HPI from patient. Patient c/o dyspnea x 1 week with right-sided pleuritic chest pain. Denies cough, fever, leg swelling. She says she had similar symptoms approximately 1.5 years ago at which time she underwent testing and "they ruled out PE" (per patient). She describes having CTA chest as part of this work up and no diagnosis was achieved. Review of Systems Constitutional: denies: Fever, Chills, Sweats Cardiac: reports: Chest pain / pressure. denies: Palpitations, Pedal edema, Calf pain Respiratory: reports: Dyspnea. 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 - Present Medications Home Medications: Ambulatory Orders Medication Instructions Recorded Confirmed Ascorbic Acid [Vitamin C] 500 mg PO 04/14/18 No122/Iron/Folic Acid 1 each PO 04/14/18 [ Multi Tablet] - Allergies Allergies/Adverse Reactions: Allergies Allergy/AdvReac Type Severity Reaction Status Date / Time No Known Drug Allergies Allergy Verified 03/04/23 16:10 - Social History Does the pt smoke?: No Smoking Status: Never smoker Does the pt drink ETOH?: No Does the pt have substance abuse?: No - Immunizations Immunizations are current?: Yes - POLST Patient has POLST: No PD ED PE NORMAL - Vitals Vital signs reviewed: Yes - General General: Alert and oriented X 3, No acute distress, Well developed/nourished - Cardiac Cardiac: RRR, No murmur - Respiratory Respiratory: No respiratory distress, Clear bilaterally - Abdomen Abdomen: Soft, Non tender - Extremities Extremities: No edema Results - Vitals Vitals: Oxygen O2 Source Room air - EKG (time done) No standard instances EKG releavant findings:: EKG personally interpreted by author of this note. Relevant findings are: Rate: Rate (enter#) (70) Rhythm: NSR [place]: Normal Intervals: Normal [place] QRS: Normal Ischemia: Normal ST segments - Rads (name of study) chest xray Relevant Findings:: Prelim report reviewed, EMP independent interpretation of test (I reviewed these images and my impression is no cardiopulmonary abnormality), See rad report PD Medical Decision Making - ED course Complexity details: reviewed results, re-evaluated patient, considered differential, d/w patient ED course: No abnormalities on EKG, CXR. Lungs are CTA bilaterally, pulse ox 100% on room air. She is PERC negative and in NAD. Further testing can be deferred to outpatient setting, but return precautions are also reviewed prior to d/c. Etiology of symptoms not apparent at this time. Departure - Departure Disposition: 01 Home, Self Care Clinical Impression: Pleurisy Condition: Good Instructions: ED Chest Pain Pleurisy Comments: The chest xray was normal as was the EKG. Further emergent testing is not indicated at this time. Follow up with your primary care provider, next available appointment, for reevaluation. You can take ibuprofen 600mg by mouth every 6 hours as needed for pain Forms: PCP List Discharge Date/Time: 03/04/23 22:40
--- NOTE | 2023-03-04 22:14 | XRAY Report ---
PROCEDURE: Chest 2 View X-Ray INDICATIONS: dyspnea, pleuritic CP TECHNIQUE: 2 views of the chest were acquired. COMPARISON: Chest x-ray 04/30/2015 FINDINGS: Surgical changes and devices: None. Lungs and pleura: No pleural effusions or pneumothorax. Lungs are clear. Mediastinum: Mediastinal contours appear normal. Heart size is normal. Bones and chest wall: No suspicious bony lesions. Overlying soft tissues appear unremarkable. IMPRESSION: No acute cardiopulmonary process. Reviewed by: Mary Wild MD on 03/04/2023 10:13 PM PST Approved by: Mary Wild MD on 03/04/2023 10:13 PM [facility] Station ID: [id number]
== END 2023-03-04 22:40 | disposition home or self-care (01) ==
LOC: ED 16:02
DX: R09.1 Pleurisy (principal)
CPT/HCPCS: 93005; 99283

== ENCOUNTER 2023-11-13 10:31 | Outpatient (CLI) | payer OTHER | END 2023-11-13 10:32 | disposition home or self-care (01) | LOC: DI 10:31 | PROVIDERS: ATTEND Student in an Organized Health Care Education/Training Program | DX: R06.00 Dyspnea, unspecified (principal); R07.9 Chest pain, unspecified | CPT/HCPCS: 93307 ==